=== PATIENT | male | born 2005 | race Two or more races ===

== ENCOUNTER → 2025-01-12 | Emergency (ER) | payer MEDICAID ==
[~2025-01-12] VITALS: Ht 172.7 cm; Wt 77.5 kg
[2025-01-12 18:37] VITALS: BP 127/73; PULSE 73; RESP 16; TEMP 98.4; O2SAT 96
== END | disposition left against medical advice (07) ==
LOC: ER 18:36
DX: M25.522 Pain in left elbow (principal); M25.521 Pain in right elbow; Z53.21 Procedure and treatment not carried out due to patient leaving prior to being seen by health care provider